=== PATIENT | female | born 1965 | race Caucasian/White ===

== ENCOUNTER 2018-12-07 12:10 | Emergency (ER) | payer SELFPAY ==
[~2018-12-07] VITALS: Ht 170.2 cm; Wt 65.9 kg
[2018-12-07] MEDS ORDERED: FENT-77 TD (12:23)
[2018-12-07] MEDS ORDERED: OXYC10 PO (12:23)
[2018-12-07] MEDS ORDERED: PREG25 PO (12:23)
[2018-12-07] MEDS ORDERED: OxyCODONE HCL/ACETAMINOPHEN 5-325 MG TABLET PO ONE (13:45)
[2018-12-07 14:37] VITALS: BP 126/82
== END 2018-12-07 14:39 | disposition home or self-care (01) ==
LOC: EMS 12:14
DX: G89.29 Other chronic pain (principal); M54.5 Low back pain; F11.20 Opioid dependence, uncomplicated; Z88.5 Allergy status to narcotic agent; Z88.0 Allergy status to penicillin; Z88.8 Allergy status to other drugs, medicaments and biological substances